=== PATIENT | male | born 1935 | race Caucasian/White ===

== ENCOUNTER 2019-03-12 17:45 | Inpatient (IN) ==
[2019-03-12] MEDS ORDERED: Sodium Chloride 0.9% 1,000 ML PRIMARY IV ONE (18:13)
[2019-03-12] MEDS ORDERED: LIDOCAINE HCL 2 % 10 ML JELLY URO-JECT TOPICAL PRN (18:16)
[2019-03-12] MEDS ORDERED: cefTRIAXone Inj 2 GM in Sodium Chloride 0.9% 100 ML IV ONE (18:17)
[2019-03-12 18:23] LABS: BASOPHILS # (AUTO) 0.02 10*3/UL; BASOPHILS % (AUTO) 0.1 % (0-1); EOSINOPHILS # (AUTO) 0 10*3/UL; EOSINOPHILS % (AUTO) 0 % (0-8); Hematocrit [HCT] 45.6 % (42.0-52.0); Hemoglobin [HGB] 15.3 g/dL (14.0-18.0); LYMPHOCYTES # (AUTO) 0.59 10*3/uL; MEAN CORPUSCULAR HGB CONC 33.6 g/dL (33-37); MEAN CORPUSCULAR VOLUME 85.6 FL (80-90); MEAN PLATELET VOLUME 11.2 FL (7.4-12.2); MONOCYTES # (AUTO) 0.94 10*3/UL (0.3-0.8); MONOCYTES % (AUTO) 5.5 % (5-15); NEUTROPHILS # (AUTO) 15.4 10*3/UL; NEUTROPHILS % (AUTO) 89.9 % (50-80); PLATELET MORPHOLOGY COMMENT NORMAL MORPHOLOGY (NORM); RBC MORPHOLOGY COMMENT NORMAL MORPHOLOGY (NORM); RED BLOOD COUNT 5.33 10^6/uL (4.70-6.10); WBC MORPHOLOGY COMMENT NORMAL MORPHOLOGY (NORM)
[2019-03-12 18:29] LABS: BUN/CREATININE RATIO 13.63 (6-20); SERUM ALBUMIN 4.3 g/dL (3.5-4.8)
[2019-03-12 18:52] LABS: BILIRUBIN,URINE NEGATIVE (NEG); CLARITY,URINE CLEAR (CLEAR); COLOR,URINE YELLOW (Y); GLUCOSE, URINE (UA) NEGATIVE (NEG); PROTEIN,URINE 30 mg/dl (NEG); UROBILINOGEN,URINE 0.2 EU/dL (0.2)
[2019-03-12 18:53] LABS: OCCULT BLOOD,URINE TRACE (NEG)
[2019-03-12 18:54] LABS: URINE SAMPLE TYPE CLEAN CATCH URINE
[2019-03-12 19:01] LABS: RENAL EPITHELIAL CELLS,URINE FEW; SQUAMOUS EPITHELIAL CELL,UR MANY; WBC,URINE 0-3
[2019-03-12 19:02] LABS: BACTERIA,URINE FEW; URINE CRYSTALS FEW
[2019-03-12 19:11] LABS: VENOUS PCO2 32.4 mmHg (45-55); VENOUS PH 7.43 (7.32-7.42)
[2019-03-12] MEDS ORDERED: ONDANSETRON 4 MG/2 ML VIAL IVP PRN (20:33)
[2019-03-12] MEDS ORDERED: LIDOCAINE W/ SODIUM BICARB 0.5 ML SYR SUBD PRN (20:33)
[2019-03-12] MEDS ORDERED: ALBUTEROL SULFATE 2.5 MG/3 ML NEB PRN (20:33)
[2019-03-12] MEDS ORDERED: cefTRIAXone Inj 2 GM in Sodium Chloride 0.9% 100 ML IV SCH (21:00)
[2019-03-12] MEDS ORDERED: PNEUMOCOCCAL 23 VACCINE 25 MCG/0.5 ML VIAL IM ONE (21:13)
[2019-03-12] MEDS ORDERED: OLANZapine Tab 5 MG TAB PO SCH (22:00)
[2019-03-12] MEDS: LORazepam 1 MG TABLET PO SCH (22:02)
[2019-03-12] MEDS: Sodium Chloride 0.9% 1,000 ML PRIMARY IV SCH (22:08)
[2019-03-12] MEDS ORDERED: METOPROLOL SUCCINATE 50 MG SR 24H TABLET PO ONE (22:27)
[2019-03-12] MEDS: Apixaban Tab 2.5 MG TABLET PO SCH (23:38)
[2019-03-12] MEDS: GUAIFENESIN 600 MG TABLET PO SCH (23:38)
[2019-03-12] MEDS: SODIUM CHLORIDE 44 ML SPRAY ENOS SCH (23:38)
[2019-03-13] MEDS: SODIUM CHLORIDE 44 ML SPRAY ENOS SCH ×3 (01:31→09:35)
[2019-03-13] MEDS: Sodium Chloride 0.9% 1,000 ML PRIMARY IV SCH ×2 (03:55→07:01)
[2019-03-13 04:25] VITALS: TEMP 97.6
[2019-03-13 04:33] LABS: BASOPHILS % (AUTO) 0 % (0-1); EOSINOPHILS % (AUTO) 0 % (0-8); Hematocrit [HCT] 39.5 % (42.0-52.0); LYMPHOCYTES # (AUTO) 1.17 10*3/uL; MEAN CORPUSCULAR HGB CONC 32.6 g/dL (33-37); MEAN CORPUSCULAR VOLUME 87.2 FL (80-90); MEAN PLATELET VOLUME 10.6 FL (7.4-12.2); MONOCYTES % (AUTO) 7.6 % (5-15); NEUTROPHILS # (AUTO) 17.96 10*3/UL; NEUTROPHILS % (AUTO) 85.8 % (50-80); RED BLOOD COUNT 4.53 10^6/uL (4.70-6.10)
[2019-03-13 04:34] LABS: BASOPHILS # (AUTO) 0.01 10*3/UL; EOSINOPHILS # (AUTO) 0 10*3/UL; PLATELET MORPHOLOGY COMMENT NORMAL MORPHOLOGY (NORM); RBC MORPHOLOGY COMMENT NORMAL MORPHOLOGY (NORM); WBC MORPHOLOGY COMMENT NORMAL MORPHOLOGY (NORM)
[2019-03-13 04:37] LABS: BUN/CREATININE RATIO 15.33 (6-20); SERUM ALBUMIN 3.4 g/dL (3.5-4.8)
[2019-03-13] MEDS ORDERED: Sodium Chloride 0.9% 2,000 ML PRIMARY IV ONE (04:46)
[2019-03-13 06:55] VITALS: RESP 22; O2SAT 94
[2019-03-13] MEDS ORDERED: IPRATROPIUM/ALBUTEROL SULFATE 3 ML NEB NEB SCH (07:00)
[2019-03-13] MEDS ORDERED: OMEPRAZOLE 20 MG CAPSULE PO SCH (07:00)
[2019-03-13 07:04] VITALS: BP 102/59
[2019-03-13] MEDS ORDERED: Hypromellose/Glycerin/PEG 400 Ophth Soln 15 ML DROPS EACH EYE PRN (07:15)
[2019-03-13] MEDS ORDERED: Cefepime Inj 2 GM in Sodium Chloride 0.9% 100 ML IV SCH (08:00)
[2019-03-13] MEDS ORDERED: NICOTINE 14 MG /DAY PATCH TRANSDERM SCH (09:00)
[2019-03-13] MEDS ORDERED: Apixaban Tab 2.5 MG TABLET PO SCH (09:00)
[2019-03-13] MEDS ORDERED: ESCITALOPRAM 10 MG TABLET PO SCH (09:00)
[2019-03-13] MEDS ORDERED: ATENOLOL 25 MG TABLET PO SCH (09:00)
[2019-03-13] MEDS ORDERED: ASCORBIC ACID Chewable 500 MG TABLET PO SCH (09:00)
[2019-03-13] MEDS ORDERED: ENOXAPARIN SODIUM 40 MG/0.4 ML SYRINGE SUBCUT SCH (09:00)
[2019-03-13] MEDS ORDERED: cefTRIAXone Inj 2 GM in Sodium Chloride 0.9% 100 ML IV SCH ×2 (09:15→18:00)
[2019-03-13] MEDS ORDERED: Sodium Chloride 0.9% 1,000 ML PRIMARY IV ONE (09:22)
[2019-03-13] MEDS: LORazepam 1 MG TABLET PO SCH (09:29)
[2019-03-13] MEDS: Apixaban Tab 2.5 MG TABLET PO SCH (09:29)
[2019-03-13] MEDS: GUAIFENESIN 600 MG TABLET PO SCH (09:47)
[2019-03-13] MEDS ORDERED: metroNIDAZOLE 500mg (Premix) 500 MG/100 ML BAG IV SCH (10:00)
[2019-03-14] MEDS ORDERED: Patch Removal PATCH TRANSDERM SCH (09:00)
[2019-03-26 16:00] LABS: MAYO ANAEROBIC ISO ID FIN 1527
== END 2019-03-13 11:32 | disposition home or self-care (01) | DRG 871 ==
LOC: ER 17:45 → MED/SURG 20:19 → ER 20:45 → MED/SURG 20:45
PROVIDERS: ADMIT Family Medicine; ATTEND Family Medicine